=== PATIENT | female | born 1995 | race Two or more races ===

== ENCOUNTER 2019-05-14 09:49 | Emergency (ER) | payer OTHER ==
[~2019-05-14] VITALS: Ht 157.5 cm; Wt 68.0 kg
== END 2019-05-14 12:14 | disposition home or self-care (01) ==
LOC: ER 09:49
DX: N39.0 Urinary tract infection, site not specified (principal)

== ENCOUNTER 2019-05-21 11:10 | Emergency (ER) | payer OTHER ==
[~2019-05-21] VITALS: Ht 157.5 cm; Wt 68.0 kg
== END 2019-05-21 13:17 | disposition home or self-care (01) ==
LOC: ER 11:10
DX: M79.662 Pain in left lower leg (principal)

== ENCOUNTER 2020-07-05 15:12 | Emergency (ER) | payer OTHER ==
[~2020-07-05] VITALS: Ht 157.5 cm; Wt 61.2 kg
== END 2020-07-05 19:23 | disposition home or self-care (01) ==
LOC: ER 15:12
DX: N39.0 Urinary tract infection, site not specified (principal); B96.29 Other Escherichia coli [E. coli] as the cause of diseases classified elsewhere; B95.2 Enterococcus as the cause of diseases classified elsewhere; R31.0 Gross hematuria; Z03.818 Encounter for observation for suspected exposure to other biological agents ruled out

== ENCOUNTER 2022-01-31 16:19 | Inpatient (IN) | payer OTHER ==
[~2022-01-31] VITALS: Ht 157.5 cm; Wt 79.4 kg
== END 2022-02-23 21:14 | disposition home or self-care (01) | DRG 603 ==
LOC: ER 16:19 → SURH 22:22
PROVIDERS: ADMIT Internal Medicine; ATTEND Internal Medicine
PROC: 06HY33Z Insertion of Infusion Device into Lower Vein, Percutaneous Approach (ICD-10-PCS; 2022-02-02)
PROC: B54CZZZ Ultrasonography of Left Lower Extremity Veins (ICD-10-PCS; 2022-02-02)
PROC: CP1Z1ZZ Planar Nuclear Medicine Imaging of Musculoskeletal System, All using Technetium 99m (Tc-99m) (ICD-10-PCS; 2022-02-03)
PROC: 0HDNXZZ Extraction of Left Foot Skin, External Approach (ICD-10-PCS; principal; 2022-02-08)
PROC: 3E1038Z Irrigation of Skin and Mucous Membranes using Irrigating Substance, Percutaneous Approach (ICD-10-PCS; 2022-02-08)
DX: L03.116 Cellulitis of left lower limb (principal); L97.528 Non-pressure chronic ulcer of other part of left foot with other specified severity; M86.8X6 Other osteomyelitis, lower leg; Q05.4 Unspecified spina bifida with hydrocephalus; B96.5 Pseudomonas (aeruginosa) (mallei) (pseudomallei) as the cause of diseases classified elsewhere; B95.2 Enterococcus as the cause of diseases classified elsewhere; B96.7 Clostridium perfringens [C. perfringens] as the cause of diseases classified elsewhere; B96.89 Other specified bacterial agents as the cause of diseases classified elsewhere; D64.89 Other specified anemias; N76.0 Acute vaginitis; L85.9 Epidermal thickening, unspecified; Z20.822 Contact with and (suspected) exposure to COVID-19

== ENCOUNTER 2022-03-28 14:26 | Inpatient (IN) | payer OTHER ==
[~2022-03-28] VITALS: Ht 157.5 cm; Wt 79.4 kg
== END 2022-04-20 20:22 | disposition home or self-care (01) | DRG 593 ==
LOC: ER 14:26 → MEDI 22:15 → SEC-K 22:15 → MEDI 03-29 04:07 → SURG 03-29 16:39 → SURH 03-31 11:40
PROVIDERS: ADMIT Internal Medicine; ATTEND Internal Medicine
PROC: 0HBNXZZ Excision of Left Foot Skin, External Approach (ICD-10-PCS; principal; 2022-03-29)
PROC: 02HV33Z Insertion of Infusion Device into Superior Vena Cava, Percutaneous Approach (ICD-10-PCS; 2022-04-03)
PROC: 30233N1 Transfusion of Nonautologous Red Blood Cells into Peripheral Vein, Percutaneous Approach (ICD-10-PCS; 2022-04-09)
PROC: B54MZZZ Ultrasonography of Right Upper Extremity Veins (ICD-10-PCS; 2022-04-12)
PROC: 0H9NXZZ Drainage of Left Foot Skin, External Approach (ICD-10-PCS; 2022-04-15)
PROC: 0H9NXZZ Drainage of Left Foot Skin, External Approach (ICD-10-PCS; 2022-04-20)
DX: L97.528 Non-pressure chronic ulcer of other part of left foot with other specified severity (principal); M86.8X6 Other osteomyelitis, lower leg; L03.116 Cellulitis of left lower limb; L08.9 Local infection of the skin and subcutaneous tissue, unspecified; B95.2 Enterococcus as the cause of diseases classified elsewhere; B96.89 Other specified bacterial agents as the cause of diseases classified elsewhere; D64.9 Anemia, unspecified; N76.0 Acute vaginitis; B35.6 Tinea cruris; F43.21 Adjustment disorder with depressed mood; Z20.822 Contact with and (suspected) exposure to COVID-19; Q05.9 Spina bifida, unspecified; F43.22 Adjustment disorder with anxiety

== ENCOUNTER 2022-09-23 12:55 | Inpatient (IN) | payer OTHER ==
[~2022-09-23] VITALS: Ht 157.5 cm; Wt 72.6 kg
--- NOTE | 2022-09-23 13:24 | NUR ---
PTE. ALERTA, CONCIENTE Y ORIENTA X3 CON BUEN PATRON RESPIRATORIO. PTE. REFIERE QUE FUE ENVIADA POR EL DR. LAGOS LEE POR ULCERA EN EL PIES KASSIE.
--- NOTE | 2022-09-23 16:17 | NUR ---
PACIENTE EVALUADA POR DR ABRAM AMEZCUAIEN [place] MED[place], SE LE ORIENTA A PACIENTE SOBRE EL MISMO Y VERBALIZA ENTENDER. SE LE COLECTAN MUESTRAS Y SE CANALIZA BAJO MEDIDAS ASEPTICAS.
--- NOTE | 2022-09-23 16:18 | NUR ---
PTE ALERTA Y ORIENTADA X3. TIENE CAMA BAJA, BARANDAS ELEVADAS. SE LE MIDEN S/V
== END 2022-09-24 11:49 | disposition home or self-care (01) | DRG 593 ==
LOC: ER 12:55 → SEC-K 18:00 → MEDJ 21:58
PROVIDERS: ADMIT Internal Medicine; ATTEND Internal Medicine
DX: L97.429 Non-pressure chronic ulcer of left heel and midfoot with unspecified severity (principal); N39.0 Urinary tract infection, site not specified; Q05.4 Unspecified spina bifida with hydrocephalus; N31.8 Other neuromuscular dysfunction of bladder; L08.89 Other specified local infections of the skin and subcutaneous tissue; B95.2 Enterococcus as the cause of diseases classified elsewhere; B96.89 Other specified bacterial agents as the cause of diseases classified elsewhere

== ENCOUNTER 2022-11-15 20:05 | Emergency (ER) | payer OTHER ==
[~2022-11-15] VITALS: Ht 162.6 cm; Wt 68.0 kg
[2022-11-16] MEDS ORDERED: CEPHALEXIN500 MG PO (05:16)
== END 2022-11-16 05:21 ==
LOC: ER 20:05
DX: L02.212 Cutaneous abscess of back [any part, except buttock and flank] (principal); L98.498 Non-pressure chronic ulcer of skin of other sites with other specified severity; Z91.040 Latex allergy status; Z88.1 Allergy status to other antibiotic agents

== ENCOUNTER 2024-10-11 15:08 | Emergency (ER) | payer OTHER ==
[~2024-10-11] VITALS: Ht 157.5 cm; Wt 90.3 kg
[~2024-10-11 15:08] MED LIST: CEPHALEXIN500 MG PO
[2024-10-11] MEDS ORDERED: FAMOTIDINE/PF 20 MG in 0.9 % SODIUM CHLORIDE 8 ML IV PUSH STA (16:19)
[2024-10-11] MEDS ORDERED: 0.9 % SODIUM CHLORIDE 1,000 ML IV SCH (16:30)
[2024-10-11] MEDS ORDERED: DIPHENOXYLATE HCL/ATROPINE 1 UDTAB TABLET PO ONE (16:30)
[2024-10-11] MEDS ORDERED: ONDANSETRON HCL 2 MG/ML VIAL IV ONE (16:30)
[2024-10-11] MEDS ORDERED: ONDANSETRON HCL 2 MG/ML VIAL ONE (16:37)
[2024-10-11] MEDS ORDERED: FAMOTIDINE/PF 20 MG/2 ML VIAL ONE (16:38)
[2024-10-11 17:43] LABS: HEMATOCRIT 34.3 % (36.0-45.00); HEMOGLOBIN 11.3 g/dL (12.0-15.00); MEAN CELL VOLUME 74.4 fL (80.00-100.00); MEAN CORPUSCULAR HEMOGLOBIN 24.6 pg (27.00-32.0); PLATELET COUNT 254 K/uL (150-450); RED BLOOD COUNT 4.62 M/uL (4.00-6.00)
[2024-10-11 17:45] LABS: RED CELL DISTRIBUTION WIDTH 18.2 % (11.5-14.5)
[2024-10-11 17:58] LABS: ALBUMIN 3.6 gm/dL (3.4-5.0); BILIRUBIN TOTAL 0.74 mg/dL (0.3-1.2); CALCIUM 8.6 mg/dL (8.5-10.1); CREATININE SERUM 0.82 mg/dL (0.55-1.02); GFR 83.01; GLOBULINA 4.6 G/DL (2.4-3.5); POTASSIUM 3.33 mEq/L (3.5-5.1); TOTAL PROTEIN 8.2 gm/dL (6.4-8.2)
[2024-10-11] MEDS ORDERED: KETOROLAC TROMETHAMINE 30 MG VIAL IV ONE (18:45)
[2024-10-11] MEDS ORDERED: KETOROLAC TROMETHAMINE 30 MG VIAL ONE (18:56)
[2024-10-11] MEDS ORDERED: METOCLOPRAMIDE HCL 5 MG/ML VIAL ONE (18:57)
[2024-10-11] MEDS ORDERED: INTESTINEX680 M1 PO (19:48)
[2024-10-11] MEDS ORDERED: PEPCID AC20 MG PO (19:48)
[2024-10-11] MEDS ORDERED: ONDANSETRON ODT8 MG PO (19:48)
== END 2024-10-11 20:26 | disposition home or self-care (01) ==
LOC: ER 15:08
PROVIDERS: General Practice
DX: K29.70 Gastritis, unspecified, without bleeding (principal); R11.2 Nausea with vomiting, unspecified; Z91.040 Latex allergy status; Z20.822 Contact with and (suspected) exposure to COVID-19